=== PATIENT | female | born 1995 | race American Indian/Alaskan Native ===

== ENCOUNTER 2019-01-11 13:05 | Outpatient (CLI) | payer MEDICAID ==
[2019-01-11] MEDS ORDERED: LACTATED RINGERS 500 ML IV ONE (13:39)
[2019-01-11 13:54] VITALS: BP 118/66
[2019-01-11] MEDS ORDERED: LACTATED RINGERS 1,000 ML IV SCH (14:00)
[2019-01-11 14:14] LABS: Amphetamine Screen,Urine PRESUMPTIVE NEGATIVE; Benzodiazepines Screen,Urine PRESUMPTIVE NEGATIVE; Cannabinoid Screen,Urine PRESUMPTIVE NEGATIVE; Cocaine Screen,Urine PRESUMPTIVE NEGATIVE; Methadone Screen,Urine PRESUMPTIVE NEGATIVE; Opiate Screen,Urine PRESUMPTIVE NEGATIVE
[2019-01-11 14:40] LABS: Color,Urine Yellow (Yellow)
[2019-01-11 14:41] LABS: Bilirubin,Urine Negative (Negative); Blood,Urine Negative (Negative); Protein,Urine <15 mg/dL mg/dL (Negative); Urobilinogen,Urine < 2.0 mg/dL (<2.0)
[2019-01-11 15:10] LABS: Bacteria,Urine 2+ /HPF (Negative)
== END 2019-01-11 15:11 | disposition home or self-care (01) ==
LOC: TRG 13:05
PROVIDERS: ATTEND Obstetrics & Gynecology
DX: O47.03 False labor before 37 completed weeks of gestation, third trimester (principal); O62.8 Other abnormalities of forces of labor; Z3A.31 31 weeks gestation of pregnancy
CPT/HCPCS: 80307; 81001